=== PATIENT | female | born 1940 | race Caucasian/White ===

== ENCOUNTER 2018-04-26 12:11 | Emergency (ER) | payer OTHER ==
[~2018-04-26] VITALS: Ht 160 cm; Wt 88.9 kg
[2018-04-26] MEDS ORDERED: LEVOXYL150 MCG PO (14:06)
[2018-04-26] MEDS ORDERED: METFORMIN HCL500 MG PO (14:06)
[2018-04-26] MEDS ORDERED: LISINOPRIL20 MG PO (14:07)
[2018-04-26 16:31] VITALS: BP 181/74
== END 2018-04-26 16:34 | disposition home or self-care (01) ==
LOC: EME 12:11
DX: S80.12XA Contusion of left lower leg, initial encounter (principal); X58.XXXA Exposure to other specified factors, initial encounter; Y93.E6 Activity, residential relocation; M71.21 Synovial cyst of popliteal space [Baker], right knee; M17.0 Bilateral primary osteoarthritis of knee; M23.42 Loose body in knee, left knee; M79.89 Other specified soft tissue disorders; M79.1 Myalgia; I10 Essential (primary) hypertension; E11.9 Type 2 diabetes mellitus without complications; Z79.84 Long term (current) use of oral hypoglycemic drugs
CPT/HCPCS: 73590; 93970; 99281; 99283